=== PATIENT | male | born 1955 | race Caucasian/White ===

== ENCOUNTER 2025-05-30 08:18 | Day surgery (SDC) | payer MEDICARE, SELFPAY ==
[2025-05-26 14:26] VITALS: BMI 28.8
--- NOTE | 2025-05-29 09:12 | HO.ANESPROP2 ---
Documented by User: Casandra Simon NP 05/29/25 09:12 HPI - Anesthesia Eval Consult details Narrative: 70yo M for Colonoscopy [facility] Past Medical History Medical History BPH (benign prostatic hyperplasia) HTN (hypertension) Asthma Surgical History Surgical History Hx of shoulder surgery (~2008) Male circumcision History of appendectomy Social History Social History Alcohol intake: current Alcohol intake frequency: holidays/special occasions only Patient Tobacco Use Status: Never used Tobacco Use of substances other than those prescribed or required for medical reasons: No Advance Directives: No Advance Directives Information Provided: Yes Meds Allergies Allergy/AdvReac Type Severity Reaction Status Date / Time No Known Allergies Allergy Verified 05/30/25 09:07 Home Medications ?Medication ?Instructions ?Recorded ?Confirmed ?Last Taken ?Type alfuzosin 10 mg tablet,extended 10 mg PO DAILY 05/22/25 05/30/25 05/27/25 History release 24 hr amlodipine 5 mg tablet 5 mg PO DAILY 05/22/25 05/30/25 05/30/25 History 2.5mg atorvastatin 40 mg tablet 40 mg PO BEDTIME 05/22/25 05/30/25 05/29/25 History diazepam 10 mg tablet 10 mg PO BEDTIME PRN Insomnia 05/22/25 05/30/25 Unknown History fluticasone 100 mcg-salmeterol 50 1 inh inhalation BID 05/22/25 05/30/25 Unknown History mcg/dose blistr powdr for inhalation (Wixela Inhub) hydrochlorothiazide 12.5 mg tablet 12.5 mg PO DAILY 05/22/25 05/30/25 Unknown History meloxicam 15 mg tablet 15 mg PO Q OTHER DAY PRN Insomnia 05/22/25 05/30/25 Unknown History testosterone 1.62 % (20.25 mg/1.25 1 packet topical DAILY 05/22/25 05/30/25 Unknown History gram) transdermal gel packet Exam Height,Weight and Vital Signs: Height 5 ft 6.5 in Weight 82.1 kg Assessment and Plan Assessment Anesthesia Assessment: Chart Reviewed Documented by User: Tami Salguero MD 05/30/25 10:18 PMF Past Medical History Medical History BPH (benign prostatic hyperplasia) HTN (hypertension) Asthma Surgical History Surgical History Hx of shoulder surgery (~2008) Male circumcision History of appendectomy History of Problems with Anesthesia: No Social History Social History Alcohol intake: current Alcohol intake frequency: holidays/special occasions only Patient Tobacco Use Status: Never used Tobacco Use of substances other than those prescribed or required for medical reasons: No Advance Directives: No Advance Directives Information Provided: Yes Meds Allergies Allergy/AdvReac Type Severity Reaction Status Date / Time No Known Allergies Allergy Verified 05/30/25 09:07 Home Medications ?Medication ?Instructions ?Recorded ?Confirmed ?Last Taken ?Type alfuzosin 10 mg tablet,extended 10 mg PO DAILY 05/22/25 05/30/25 05/27/25 History release 24 hr amlodipine 5 mg tablet 5 mg PO DAILY 05/22/25 05/30/25 05/30/25 History 2.5mg atorvastatin 40 mg tablet 40 mg PO BEDTIME 05/22/25 05/30/25 05/29/25 History diazepam 10 mg tablet 10 mg PO BEDTIME PRN Insomnia 05/22/25 05/30/25 Unknown History fluticasone 100 mcg-salmeterol 50 1 inh inhalation BID 05/22/25 05/30/25 Unknown History mcg/dose blistr powdr for inhalation (Kayli Inhub) hydrochlorothiazide 12.5 mg tablet 12.5 mg PO DAILY 05/22/25 05/30/25 Unknown History meloxicam 15 mg tablet 15 mg PO Q OTHER DAY PRN Insomnia 05/22/25 05/30/25 Unknown History testosterone 1.62 % (20.25 mg/1.25 1 packet topical DAILY 05/22/25 05/30/25 Unknown History gram) transdermal gel packet Exam Airway Mallampati Class: II TM Dist: >3cm Neck ROM: Full Loose/Missing/Broken Teeth: No Heart: RRR Lungs: CTA Assessment and Plan Assessment Anesthesia Assessment: Anesthesia Plan Discussed Final Anesthetic Review History of Problems with Anesthesia: No NPO: Yes ASA Class: II Final Preanesthetic Review: Meds/Allgs Chart Reviewed, Consent Obtained/Reviewed and Anes Risks/Benef Reviewed Patient Risk: Low Procedure Risk: Low Anesthetic Plan Anesthetic Plan: MAC: Disposition: Standard PACU
[2025-05-30 09:15] VITALS: BMI 27.5
[2025-05-30 09:25] VITALS: BP 138/94; PULSE 66; RESP 16; TEMP 36.6; O2SAT 96
[2025-05-30] MEDS: Lactated Ringers 1,000 ML 100 ML IVCONT (09:27)
--- NOTE | 2025-05-30 10:20 | MHC.SHP ---
Pre-Procedural Eval Section A - 24 Hr Update-Section A only Date of Service: 05/30/25 The patient is an INPATIENT: No Changes since office visit: No Cold of Flu in the past 2 weeks, No New Medical Problems, No Changes in Medication and No Patient answered all questions The patient has been examined within 24 hours of the surgical procedure. The History & Physical has been completed within 30 days and I have reviewed it.: Yes Section B - Complete if H&P > 30 days Chief Complaint: hx serrated colon polyps,screening Allergies: Allergies Allergy/AdvReac Type Severity Reaction Status Date / Time No Known Allergies Allergy Verified 05/30/25 09:07 Plan I have reviewed the history and physical and performed a pertinent physical examination on my patient. No changes have occurred unless specified. Time Spent With Patient Time: Total time managing care of this patient today ____ minutes.
[2025-05-30 10:53] VITALS: BP 96/57; PULSE 69; RESP 18; TEMP 37; O2SAT 97
[2025-05-30 11:00] VITALS: BP 115/62; PULSE 79; RESP 12; O2SAT 96
[2025-05-30 11:08] VITALS: BP 123/80; PULSE 66; RESP 12; TEMP 37.1; O2SAT 96
--- NOTE | 2025-05-30 11:42 | OP_ITS ---
DATE OF SERVICE: 05/30/2025 SURGEON: Carlyle Murdock MD INDICATIONS: Colon cancer screening and prior history of adenomatous colon polyps. PREOPERATIVE DIAGNOSIS: POSTOPERATIVE DIAGNOSIS: PROCEDURE PERFORMED: Colonoscopy to the terminal ileum with biopsy. ESTIMATED BLOOD LOSS: COMPLICATIONS: ANESTHESIA: Medications; monitored anesthesia care. ASSISTANTS: SPECIMENS: DESCRIPTION OF PROCEDURE: A history and physical were performed. The risks and benefits of the procedure were explained to the patient and informed consent was obtained. The patient was placed in the left lateral decubitus position. A digital rectal exam was performed and was found to be normal. The Olympus pediatric video colonoscope inserted into the rectum and advanced to the cecum. The cecum was identified by transillumination, palpation, and identification of ileocecal valve. Examination was performed. The scope was removed. He tolerated the procedure well and was returned to recovery area in stable condition. FINDINGS: The terminal ileum was examined and appeared normal. The visualized colonic mucosa was normal. The quality of the prep was good except in the right colon where there was retained semi-formed viscous stool, which was washed and suctioned as best as possible. Three polyps were identified, all measured less than 5 mm were removed with biopsy forceps. These were located in the cecum, right colon at 45 cm. Retroflexed examination showed internal hemorrhoids. IMPRESSION: Colon polyps. RECOMMENDATION: Follow up the biopsy results. MD PER High/EULA / [id number]
== END 2025-05-30 11:40 | disposition home or self-care (01) ==
PROVIDERS: PCP Internal Medicine; Visit Provider Internal Medicine Gastroenterology
PROC: 0DJD8ZZ Inspection of Lower Intestinal Tract, Via Natural or Artificial Opening Endoscopic (ICD-10-PCS; CPT 45378; principal; 2025-05-30 10:10)
DX: Z12.11 Encounter for screening for malignant neoplasm of colon (principal); Z86.0101 Personal history of adenomatous and serrated colon polyps; K64.8 Other hemorrhoids; D12.2 Benign neoplasm of ascending colon; D12.0 Benign neoplasm of cecum
CPT/HCPCS: 45380; 88305; J2704